=== PATIENT | male | born 2000 | race Asian ===

== ENCOUNTER 2018-02-18 13:30 | Emergency (ER) | payer MEDICAID ==
[~2018-02-18] VITALS: Ht 182.9 cm; Wt 63.5 kg
[2018-02-18 13:45] VITALS: BP_SYST 112
[2018-02-18 16:25] VITALS: BP_SYST 112
== END 2018-02-18 16:25 | disposition home or self-care (01) ==
LOC: SED 13:30
DX: Z02.89 Encounter for other administrative examinations (principal)
CPT/HCPCS: 36415; 99281